=== PATIENT | female | born 2000 ===

== ENCOUNTER 2021-05-01 12:46 | Emergency (ER) | payer OTHER ==
[~2021-05-01] VITALS: Ht 157.5 cm; Wt 54.5 kg
[2021-05-01] MEDS ORDERED: ACETAMINOPHEN 325 MG TABLET PO ONE (14:15)
[2021-05-01 19:40] VITALS: BP 122/74
== END 2021-05-01 19:50 ==
LOC: EMS 12:51
DX: S82.041A Displaced comminuted fracture of right patella, initial encounter for closed fracture (principal); W19.XXXA Unspecified fall, initial encounter; Y93.89 Activity, other specified; Y92.89 Other specified places as the place of occurrence of the external cause; Y99.8 Other external cause status
CPT/HCPCS: 29505; 73700; 84702; 84703; 99284